=== PATIENT | female | born 1955 | race Caucasian/White ===

== ENCOUNTER 2022-03-07 09:33 | Outpatient (CLI) | payer MEDICARE | END 2022-03-07 23:59 | disposition home or self-care (01) | LOC: CARD DIAG 09:33 | PROVIDERS: ATTEND Nurse Practitioner | DX: Z01.818 Encounter for other preprocedural examination (principal); I34.0 Nonrheumatic mitral (valve) insufficiency | CPT/HCPCS: 93306 ==